=== PATIENT | male | born 1940 | race Caucasian/White ===

== ENCOUNTER → 2017-07-08 | Outpatient (CLI) | payer MEDICARE, OTHER ==
--- NOTE | 2017-07-08 15:20 | CT ---
EXAM DESCRIPTION: Head: Computed Tomography. CLINICAL HISTORY: R51 COMPARISON: None. TECHNIQUE: Non-helical axial scans through the skull and brain, at 5.0 mm intervals, non-contrast. Axial 2.5 mm reconstructions and sagittal and coronal 2.0 mm reconstructions. Total Exam DLP: 859.97 mGy-cm. This exam was performed according to our departmental dose-optimization program which includes automated exposure control, adjustment of the mA and/or kV according to patient size and/or use of iterative reconstruction technique; to reduce radiation dose to as low as reasonably achievable (ALARA). FINDINGS: No hemorrhage, no mass-effect, and no midline shift. Bilateral periventricular low-density more prevalent in the frontal and occipital lobes bilaterally. No abnormal radiodense material in the brain parenchyma, but there is calcification in the left basal ganglia. Vascular calcifications anterior and posterior; physiologic calcifications in the pineal gland and choroid plexus. No effacement or displacement of the ventricles, CSF spaces, or subdural spaces. No extra axial fluid collection or hemorrhage. No gross abnormalities of the bony calvarium. Intimal paranasal sinus mucosal thickening. Bilateral small randa bullosa in the middle turbinates of the nasal passages. IMPRESSION: 1. No hemorrhage, no mass effect, no midline shift. Mild to moderate bilateral periventricular small vessel disease is probably age-related. Probable atherosclerotic vascular calcifications in the left basal ganglia as well as in the anterior and posterior circulations. Minimal paranasal sinus abnormalities. 2. CT scans are insensitive for detecting small CVAs in the first 24 hours after onset. Evaluation of the brain stem is also limited. If symptoms persist, consider MRI scan of the brain with diffusion imaging. Electronically signed by: Ed Villasenor MD 07/08/2017 3:17 PM CDT
== END ==
LOC: CT 09:00
PROVIDERS: ATTEND General Practice
DX: R51 Headache (principal)

== ENCOUNTER → 2018-02-10 | Outpatient (CLI) | payer MEDICARE, OTHER | LOC: RESP 09:55 | PROVIDERS: ATTEND General Practice | DX: R00.1 Bradycardia, unspecified (principal); R06.02 Shortness of breath ==

== ENCOUNTER → 2018-03-16 | Outpatient (CLI) | payer MEDICARE, OTHER ==
[~2018-03-16] MED LIST: ALBUTEROL SULFATE 2.5 MG/3 ML VIAL NEB ONE
== END ==
LOC: RESP 09:50
PROVIDERS: ATTEND General Practice
DX: R06.02 Shortness of breath (principal); Z87.891 Personal history of nicotine dependence
CPT/HCPCS: 94060; J7611

== ENCOUNTER 2018-05-01 05:12 | Day surgery (SDC) | payer MEDICARE, OTHER ==
[2018-05-01] MEDS ORDERED: TROP 1%/CYCLOPEN 1%/PHENYL 2% DROPS ONE (08:41)
[2018-05-01] MEDS ORDERED: PROPARACAINE 0.5% OPHTH SOL 15 ML BTTL ONE (08:41)
[2018-05-01] MEDS ORDERED: MIDAZOLAM INJ 2 MG/2 ML VIAL ONE (10:27)
[2018-05-01] MEDS ORDERED: DEXAMETHASONE 0.1% OPHTH SOL 1 DROP LEFT_EYE ONE ×2 (10:48→10:58)
[2018-05-01] MEDS ORDERED: TOBRAMYCIN SULF 0.3 % OPHT SOL 1 DROP LEFT_EYE ONE ×2 (10:48→10:58)
[2018-05-01] MEDS ORDERED: LIDOCAINE 1% MPF 5 ML VIAL INJ ONE (10:48)
[2018-05-01] MEDS ORDERED: BRIMONIDINE 0.2% OPHTH DROPS LEFT_EYE ONE ×2 (10:49→10:58)
== END 2018-05-01 11:40 | disposition home or self-care (01) ==
LOC: AMB 05:12
PROVIDERS: ATTEND Ophthalmology
DX: H25.12 Age-related nuclear cataract, left eye (principal); I25.10 Atherosclerotic heart disease of native coronary artery without angina pectoris; I10 Essential (primary) hypertension; E11.36 Type 2 diabetes mellitus with diabetic cataract; G47.30 Sleep apnea, unspecified; E66.9 Obesity, unspecified; Z95.5 Presence of coronary angioplasty implant and graft; Z79.02 Long term (current) use of antithrombotics/antiplatelets; Z79.899 Other long term (current) drug therapy
CPT/HCPCS: 00142; 66984; J2250

== ENCOUNTER 2018-05-15 05:31 | Day surgery (SDC) | payer MEDICARE, OTHER ==
[2018-05-15] MEDS ORDERED: PROPARACAINE 0.5% OPHTH SOL 15 ML BTTL ONE (08:19)
[2018-05-15] MEDS ORDERED: TROP 1%/CYCLOPEN 1%/PHENYL 2% DROPS ONE (08:19)
[2018-05-15] MEDS ORDERED: MOXIFLOXACIN HCL (OPHTH) 1 DROP DROPS ONE (08:19)
[2018-05-15] MEDS ORDERED: MIDAZOLAM INJ 2 MG/2 ML VIAL ONE ×2 (09:26→12:20)
[2018-05-15] MEDS ORDERED: PROPARACAINE 0.5% OPHTH SOL 15 ML BTTL RIGHT_EYE ONE (09:31)
[2018-05-15] MEDS ORDERED: LIDOCAINE 1% 2 ML VIAL INJ ONE ×2 (09:42→09:43)
[2018-05-15] MEDS ORDERED: TOBRAMYCIN SULF 0.3 % OPHT SOL 1 DROP RIGHT_EYE ONE ×2 (09:43→09:58)
[2018-05-15] MEDS ORDERED: BRIMONIDINE 0.2% OPHTH DROPS RIGHT_EYE ONE ×2 (09:43→09:58)
[2018-05-15] MEDS ORDERED: DEXAMETHASONE 0.1% OPHTH SOL 1 DROP RIGHT_EYE ONE ×2 (09:43→09:58)
[2018-05-15] MEDS ORDERED: MOXIFLOXACIN HCL (OPHTH) 1 DROP DROPS RIGHT_EYE ONE ×2 (09:43→09:56)
== END 2018-05-15 10:40 | disposition home or self-care (01) ==
LOC: AMB 05:31
PROVIDERS: ATTEND Ophthalmology
DX: H26.9 Unspecified cataract (principal); I25.10 Atherosclerotic heart disease of native coronary artery without angina pectoris; I10 Essential (primary) hypertension; I25.2 Old myocardial infarction; E66.01 Morbid (severe) obesity due to excess calories; I48.92 Unspecified atrial flutter; G47.30 Sleep apnea, unspecified; Z95.5 Presence of coronary angioplasty implant and graft; Z99.89 Dependence on other enabling machines and devices; Z79.82 Long term (current) use of aspirin; Z79.01 Long term (current) use of anticoagulants; Z79.899 Other long term (current) drug therapy
CPT/HCPCS: 00142; 66984; J2250